=== PATIENT | male | born 1955 | race Caucasian/White ===

== ENCOUNTER 2016-07-25 12:57 | Outpatient (CLI) | payer OTHER ==
[2016-07-25] MEDS ORDERED: FLUMAZENIL 0.5 MG/5 ML MDV IVP ONE (13:27)
[2016-07-25] MEDS ORDERED: MIDAZOLAM 2 MG/2 ML VIAL ONE ×2 (13:27)
[2016-07-25] MEDS ORDERED: NALOXONE HCL 0.4 MG/ML INJ ONE (13:27)
[2016-07-25] MEDS ORDERED: fentaNYL 100 MCG/2 ML INJ ONE (13:28)
[2016-07-25] MEDS ORDERED: ATROPINE SULFATE 1 MG/10 ML SYR ONE (13:29)
[2016-07-25] MEDS ORDERED: NS 1,000 ML IV SCH (13:30)
[2016-07-25] MEDS ORDERED: GADOBUTROL 10 ML VIAL IVP ONE (14:00)
== END 2016-07-25 15:45 | disposition home or self-care (01) ==
LOC: FIMAGING 12:57
PROVIDERS: ATTEND Psychiatry & Neurology Neurology
DX: G40.909 Epilepsy, unspecified, not intractable, without status epilepticus (principal)
CPT/HCPCS: A9585; J0461; J2250; J2310; J3010